=== PATIENT | male | born 1990 | race Caucasian/White ===

== ENCOUNTER 2019-12-11 12:29 | Emergency (ER) | payer OTHER, SELFPAY ==
[2019-12-11 13:20] VITALS: BP 120/78; PULSE 66; RESP 14; TEMP 36.8; O2SAT 99; BMI 22.4
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
[2019-12-11 15:17] VITALS: RESP 18
[2019-12-11 16:19] LABS: Hepatitis B Surface AB 134.4 (0-8.5); Hepatitis B Surface Antigen Non-Reactive (Nonreactive); Hepatitis C Virus Antibody Non-Reactive (Nonreactive)
[2019-12-11 16:39] LABS: HIV 1 & 2 Antibody Non-Reactive (Non-Reactiv); HIV 1 & 2 Antigen Non-Reactive (Non-Reactiv)
== END 2019-12-11 15:26 | disposition home or self-care (01) ==
PROVIDERS: Emergency Provider Physician Assistant
DX: S61.231A Puncture wound without foreign body of left index finger without damage to nail, initial encounter (principal); W46.0XXA Contact with hypodermic needle, initial encounter; Y92.234 Operating room of hospital as the place of occurrence of the external cause
CPT/HCPCS: 12345; 86706; 86803; 87340; 87806; 99281; 99282

== ENCOUNTER → 2020-02-11 12:53 | Outpatient (BNVA) | payer OTHER, SELFPAY | PROVIDERS: Visit Provider Family Medicine | DX: Z11.59 Encounter for screening for other viral diseases (principal); Z20.828 Contact with and (suspected) exposure to other viral communicable diseases | CPT/HCPCS: 87635 ==

== ENCOUNTER → 2020-02-13 12:31 | Outpatient (BNVA) | payer OTHER, SELFPAY | PROVIDERS: Visit Provider Family Medicine | DX: Z11.59 Encounter for screening for other viral diseases (principal); Z20.828 Contact with and (suspected) exposure to other viral communicable diseases | CPT/HCPCS: 87635 ==

== ENCOUNTER 2020-02-17 13:26 | Emergency (ER) | payer OTHER, SELFPAY ==
[2020-02-17 13:36] VITALS: BP 129/84; PULSE 72; RESP 18; O2SAT 100; BMI 23.7
--- NOTE | 2020-02-17 13:44 | W.ED.WOUNDLC ---
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 Patient was in a case just prior to arrival and has a small less than 1 cm laceration to the dorsal aspect of his right hand from a dirty instrument. Patient denies any pain. He is up-to-date on his tetanus. He has no bleeding at this time. Denies any worsening improving factors. Associated symptoms: Denies chills, fever(s), nausea or vomiting Review of Systems Const: Denies: fever(s), chills, body aches or change in appetite Eyes: Denies: blurry vision or eye discomfort ENMT: Denies: throat pain or dental pain Card: Denies: chest pain Resp: Denies: dyspnea GI: Denies: abdominal pain, nausea, vomiting or diarrhea : Denies: dysuria Musc: Denies: neck pain or back pain Skin/Breast: Denies: rash Neuro: Denies: headache(s) Psych: Denies: depression Kwabena/Lymph: Denies: easy bruising All/Imm: Denies: urticaria Physical Exam Const: COMMON NORMALS: no acute distress, patient oriented x3 and healthy appearing HENMT: COMMON NORMALS: normocephalic and atraumatic HEAD & SCALP: normocephalic and atraumatic Eye: COMMON NORMALS: EOMs intact bilaterally Neck/C-Spine: COMMON NORMALS: full ROM Chest: COMMONS NORMALS: normal inspection of the chest Resp: COMMON NORMALS: normal respiratory effort, No retractions and No use of accessory muscles Cardio: COMMON NORMALS: regular rate and regular rhythm RATE: regular rate RHYTHM: regular rhythm GI: INSPECTION: Yes normal to inspection Extremity: COMMON NORMALS: normal to inspection Neuro: COMMON NORMALS: patient oriented x3 Psych: COMMON NORMALS: mental status grossly normal, Normal thought process present and cooperative THOUGHT PROCESS: Normal thought process present Skin: COMMON NORMALS: no rashes or lesions noted and no wounds NARRATIVE SKIN EXAM: Very small less than 1 cm laceration to the dorsal aspect of right hand. No bleeding at this time. GENERAL SKIN EXAM: no rashes or lesions noted Course Vital Signs: Vital signs: Vital Signs Pulse Rate 72 02/17/20 13:36 Respiratory Rate 18 02/17/20 13:36 Blood Pressure 129/84 02/17/20 13:36 Pulse Oximetry 100 02/17/20 13:36 MDM - Wound/Laceration MDM Narrative: Medical decision making narrative: Patient presents here with a injury from an instrument that was dirty. Will check for HIV and hepatitis. Patient is to follow-up with employee health. He does not require any sutures and is well-appearing here. He is stable for discharge. Discharge Plan Discharge Patient Disposition: Home Clinical Impression: Employee exposure to blood, Puncture wound Condition: Stable Discharge Orders: Discharge Order (Routine); Ordered 02/17/20 Ordered By: Lesli Edouard Discharge Diet: Advance as tolerated Discharge Activity: Resume usual activity Patient Instructions: Blood/Body Fluid Exposure - Occupational, Needle Stick Injuries (ED) Coding Level of Care Code ED Dairy Hand for Gabby Pike
[2020-02-17 14:58] LABS: HIV 1 & 2 Antibody Non-Reactive (Non-Reactiv); HIV 1 & 2 Antigen Non-Reactive (Non-Reactiv)
[2020-02-17 16:28] LABS: Hepatitis A Antibody IgM Non-Reactive (Nonreactive); Hepatitis B Core AB, Total Non-Reactive (Nonreactive); Hepatitis B Surface AB 134.6 (0-8.5); Hepatitis B Surface Antigen Non-Reactive (Nonreactive); Hepatitis C Virus Antibody Non-Reactive (Nonreactive)
== END 2020-02-17 14:03 | disposition home or self-care (01) ==
PROVIDERS: Emergency Provider Emergency Medicine
DX: S61.431A Puncture wound without foreign body of right hand, initial encounter (principal); W26.8XXA Contact with other sharp object(s), not elsewhere classified, initial encounter; Y93.F9 Activity, other caregiving; Y92.234 Operating room of hospital as the place of occurrence of the external cause; Y99.0 Civilian activity done for income or pay; Z77.21 Contact with and (suspected) exposure to potentially hazardous body fluids
CPT/HCPCS: 12345; 86705; 86706; 86709; 86803; 87340; 87806; 99282

== ENCOUNTER → 2020-05-29 08:08 | Outpatient (BNVA) | payer BC, OTHER, SELFPAY | PROVIDERS: Visit Provider Nurse Practitioner | DX: Z20.822 Contact with and (suspected) exposure to COVID-19 (principal) | CPT/HCPCS: 87635 ==

== ENCOUNTER → 2021-03-04 07:00 | Outpatient (BNVA) | payer BC, SELFPAY | PROVIDERS: Visit Provider Internal Medicine | DX: A09 Infectious gastroenteritis and colitis, unspecified (principal) | CPT/HCPCS: 82274; 87493; 87506 ==

== ENCOUNTER 2021-03-13 20:22 | Emergency (ER) | payer BC, SELFPAY ==
[2021-03-13 20:25] VITALS: BP 135/82; RESP 16; O2SAT 97; BMI 20.9
[2021-03-13] MEDS: diphenoxylate/atropine Tablet 2 TAB PO (22:27)
[2021-03-13 22:28] VITALS: BP 125/80; RESP 18; O2SAT 95
[2021-03-13 22:51] VITALS: BP 122/75; PULSE 100; RESP 18; TEMP 36.9; O2SAT 97
--- NOTE | 2021-03-13 23:33 | ED_ITS ---
Documented by User: PHAN Galan 03/13/21 23:39 HPI - Nausea/Vomiting/Diarrhea General: Chief complaint: Nausea/Vomiting/Diarrhea Stated complaint: CDIFF Dehydrate Time Seen by Provider: 03/13/21 22:05 History of Present Illness: HPI Narrative: Patient presents with need for antibiotics. Patient recently diagnosed with C. difficile. Patient was told that he possibly had a infection with Salmonella patient symptoms are not improving. Patient desires to have antibiotic medicine to help with diarrhea. Patient denies fever or worsening symptoms but does not have symptom resolution. MD elicited complaint: nausea and diarrhea Onset (ago): day(s) Description of vomiting: watery and foul-smelling Description of diarrhea: watery Associated nausea: Yes Associated abdominal pain: No Associated symtoms: Reports nausea; Denies anxiety, change in vision, chest pain or headache(s) Review of Systems Const: Denies: fever(s), chills or body aches Eyes: Denies: change in vision or blurry vision ENMT: Denies: throat pain or nasal congestion Card: Denies: chest pain or dyspnea on exertion Resp: Denies: dyspnea, productive cough or non-productive cough GI: Reports: nausea and diarrhea; Denies: abdominal pain or vomiting : Denies: difficulty urinating Musc: Denies: extremity pain Skin/Breast: Denies: rash Neuro: Denies: headache(s) Psych: Denies: anxiety or depression Kwabena/Lymph: Denies: easy bruising PFSH ED PFSH: Social History (Updated 03/04/21 @ 13:48 by LUCY Malone) Smoking and tobacco status: current every day smoker Adopted: No Marital status: Number of children: 4 service: Yes History of recent travel: No Physical Exam Const: COMMON NORMALS: no acute distress GENERAL APPEARANCE: cooperative Resp: COMMON NORMALS: normal respiratory effort GI: COMMON NORMALS: Normal to inspection, nondistended, normoactive bowel sounds present Psych: COMMON NORMALS: mental status grossly normal Course Vital Signs: Vital signs: Vital Signs Temperature 98.4 F 03/13/21 22:51 Pulse Rate 100 03/13/21 22:51 Respiratory Rate 18 03/13/21 22:51 Blood Pressure 122/75 03/13/21 22:51 Pulse Oximetry 97 03/13/21 22:51 MDM - Nausea/Vomiting/Diarrhea MDM Narrative: Medical decision making narrative: Patient with C. difficile, untreated. Patient complains about nausea denies fever. Patient was placed on appropriate antibiotics and antidiarrheal patient has appoint with Dr. Durán on Monday will follow up with them. Discharge Plan Discharge Patient Disposition: Home Clinical Impression: Clostridium difficile infection Condition: Stable Prescriptions: New vancomycin 125 mg capsule 125 mg PO QID 7 Days Qty: 28 RF: 0 Lomotil 2.5-0.025 mg tablet 1 tab PO QID PRN (Reason: diarrhea) Qty: 14 RF: 0 No Action loperamide [Imodium A-D] 2 mg capsule 2 mg PO QID PRNRF: 0 Xifaxan 200 mg tablet 400 mg PO TID Qty: 60 RF: 0 Discharge Orders: Discharge ED (Routine); Ordered 03/13/21 Ordered By: Peewee Drake Referrals: Rusty Durán MD [Primary Care Provider] - Discharge Diet: As Directed Discharge Activity: Increase activity as tolerated Patient Instructions: C. Diff (Clostridioides Difficile) Infection (ED) Activity Restrictions/Additional Instructions: Follow-up with medical provider as directed. Take medications as prescribed. Return to the ER or your medical provider if condition worsens. Please read and understand discharge instructions. If any questions ask please. Coding Level of Care Code ED Student Support Advisor for Chg Fwd Exam Expanded Problem Focused Documented by User: Frank Hardin DO 03/13/21 23:47 HPI - Nausea/Vomiting/Diarrhea General: Chief complaint: Nausea/Vomiting/Diarrhea Stated complaint: CDIFF Dehydrate Time Seen by Provider: 03/13/21 22:05 [facility] ED PFSH: Social History (Updated 03/04/21 @ 13:48 by LUCY Malone) Smoking and tobacco status: current every day smoker Adopted: No Marital status: Number of children: 4 service: Yes History of recent travel: No Course Vital Signs: Vital signs: Vital Signs Temperature 98.4 F 03/13/21 22:51 Pulse Rate 100 03/13/21 22:51 Respiratory Rate 18 03/13/21 22:51 Blood Pressure 122/75 03/13/21 22:51 Pulse Oximetry 97 03/13/21 22:51 MDM - Nausea/Vomiting/Diarrhea MDM Narrative: Medical decision making narrative: This patient was originally seen by PHAN Goode. I agree with his history, evaluation, and treatment. Discharge Plan Discharge Patient Disposition: Home Clinical Impression: Clostridium difficile infection Condition: Stable Prescriptions: New vancomycin 125 mg capsule 125 mg PO QID 7 Days Qty: 28 RF: 0 Lomotil 2.5-0.025 mg tablet 1 tab PO QID PRN (Reason: diarrhea) Qty: 14 RF: 0 No Action loperamide [Imodium A-D] 2 mg capsule 2 mg PO QID PRNRF: 0 Xifaxan 200 mg tablet 400 mg PO TID Qty: 60 RF: 0 Discharge Orders: Discharge ED (Routine); Ordered 03/13/21 Ordered By: Peewee Drake Referrals: Rusty Durán MD [Primary Care Provider] - Discharge Diet: As Directed Discharge Activity: Increase activity as tolerated Patient Instructions: C. Diff (Clostridioides Difficile) Infection (ED) Activity Restrictions/Additional Instructions: Follow-up with medical provider as directed. Take medications as prescribed. Return to the ER or your medical provider if condition worsens. Please read and understand discharge instructions. If any questions ask please. Coding Level of Care Code ED Student Support Advisor for [employer]eng Fwd Exam Expanded Problem Focused
== END 2021-03-13 22:52 | disposition home or self-care (01) ==
PROVIDERS: Emergency Provider Nurse Practitioner Family; PCP Internal Medicine
DX: A04.72 Enterocolitis due to Clostridium difficile, not specified as recurrent (principal); F17.210 Nicotine dependence, cigarettes, uncomplicated
CPT/HCPCS: 99283; J3370

== ENCOUNTER 2021-04-22 09:32 | Emergency (ER) | payer OTHER, SELFPAY ==
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
[2021-04-22 10:11] VITALS: BP 143/92; PULSE 78; RESP 16; TEMP 37; O2SAT 99; BMI 22.4
[2021-04-22] MEDS: ibuprofen 800 mg tablet PO (11:11)
[2021-04-22 11:16] VITALS: BP 143/92; PULSE 87; RESP 15; O2SAT 99
== END 2021-04-22 11:14 | disposition home or self-care (01) ==
PROVIDERS: Emergency Provider Nurse Practitioner Family; PCP Internal Medicine
DX: S13.4XXA Sprain of ligaments of cervical spine, initial encounter (principal); F17.210 Nicotine dependence, cigarettes, uncomplicated; V89.2XXA Person injured in unspecified motor-vehicle accident, traffic, initial encounter
CPT/HCPCS: 99282

== ENCOUNTER 2022-03-27 21:49 | Emergency (ER) | payer BC, SELFPAY ==
[2022-03-27 22:03] VITALS: BP 141/81; PULSE 73; RESP 16; TEMP 37.1; O2SAT 99; BMI 23.7
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
[2022-03-28 01:15] VITALS: BP 132/77; PULSE 68; RESP 16; O2SAT 98
== END 2022-03-28 01:10 | disposition home or self-care (01) ==
PROVIDERS: Emergency Provider Physician Assistant; PCP Internal Medicine
DX: S13.4XXA Sprain of ligaments of cervical spine, initial encounter (principal); M54.9 Dorsalgia, unspecified; V50.9XXA Unspecified occupant of pick-up truck or van injured in collision with pedestrian or animal in traffic accident, initial encounter; F17.210 Nicotine dependence, cigarettes, uncomplicated
CPT/HCPCS: 71045; 72100; 72125; 73030; 99284